=== PATIENT | male | born 1985 | race Caucasian/White ===

== ENCOUNTER 2020-01-16 07:54 | Emergency (ER) | payer MEDICARE, MEDICAID, SELFPAY ==
[2020-01-16] VITALS (7 sets, daily range): BP systolic 118–143; BP diastolic 65–99; PULSE 76–90; RESP 16–18; TEMP 37.2; O2SAT 96–99
--- NOTE | ~2020-01-16 | XR_ITS ---
XR chest 2V DATE: 01/16/2020 08:09 INDICATION: Midsternal chest pain, acute onset TECHNIQUE: PA and lateral views COMPARISON: 04/17/2019 PA and lateral chest FINDINGS: No pulmonary infiltrate or consolidation, pleural effusion or pulmonary vascular congestion or pneumothorax is detected. Heart size appears within normal range. IMPRESSION: No active cardiopulmonary disease Reviewed, dictated and finalized at location A.
--- NOTE | 2020-01-16 07:56 | ECG_ITS ---
Measurements Intervals [place] Rate: 87 P: 39 [place]: 128 QRS: 28 QRSD: 109 T: -9 QT: 319 QTc: 384 Interpretive Statements SINUS RHYTHM BORDERLINE ST-T WAVE ABNORMALITY- INFERIOR LEADS BASELINE ARTIFACT- I, II, AVR, AVL, AVF BORDERLINE ECG Electronically Signed On 01-16-2020 8:51:25 CDT by Adrien Simon D.O.
--- NOTE | 2020-01-16 07:56 | ED.CHESTPAIN ---
HPI - Chest Pain General Chief Complaint: Chest Pain Stated Complaint: CP Source: patient and EMS Mode of arrival: EMS Limitations: no limitations History of Present Illness HPI narrative: Patient is a 34-year-old male who presents to the emergency department for evaluation of epigastric abdominal pain, lower chest pain. Pain started approximately 1 hour prior to arrival while the patient was driving to work, where he is employed at [employer]. Patient just reports the pain is dull, aching in nature without radiation into the neck, jaw, shoulder or back. No lower abdominal pain, no ripping or tearing sensation to the flank. No shortness of breath, no nausea, diaphoresis or vomiting. Patient states he had a burrito for breakfast, but states this does not feel much like acid reflux. No history of previous OH, or any family history of sudden cardiac . He does have a history of hypertension. Related Data Home Medications Medication Instructions Recorded Confirmed lisinopril-hydrochlorothiazide 01/16/20 Allergies Allergy/AdvReac Type Severity Reaction Status Date / Time No Known Allergies Allergy Verified 01/16/20 08:21 Review of Systems Review of Systems: Narrative: CONSTITUTIONAL: Denies fever CARDIOVASCULAR: Reports mild chest pain RESPIRATORY: Denies cough or dyspnea. GASTROINTESTINAL: Reports upper abdominal pain SKIN: Denies rash MUSCULOSKELETAL: Denies back pain NEUROLOGIC: Denies headache PMFSH Past Medical History Medical History (Updated 01/16/20 @ 11:48 by Flaca Alanis MD) Hypertension Social History Social History (Updated 01/16/20 @ 07:58 by Flaca Alanis MD) Smoking status: Never smoker Alcohol intake: never Substance use: never Additional occupation/education comments: [employer] Exam Narrative: Exam Narrative: GENERAL: Awake, alert, conversant HEAD: Normocephalic, atraumatic. EYES: PERRLA and EOMI. ENT: Nares clear, no rhinorrhea or epistaxis. Mucous membranes moist. NECK: Supple. CHEST: No respiratory distress, breathing even and non labored HEART: Regular rate, sinus rhythm ABDOMEN: Obese abdomen, non distended, non tender EXTREMITIES: Normal range of motion. No edema. SKIN: Warm, dry, no rash. NEURO:No focal deficits. Alert and oriented x3 Course Vital Signs Vital signs: Vital Signs Temperature 37.2 C 01/16/20 07:52 Pulse Rate 90 01/16/20 07:52 Respiratory Rate 18 01/16/20 07:52 Blood Pressure 143/94 H 01/16/20 07:52 Pulse Oximetry 99 01/16/20 07:52 Temperature 37.2 C 01/16/20 07:52 Pulse Rate 80 01/16/20 11:00 Respiratory Rate 16 01/16/20 11:00 Blood Pressure 140/99 H 01/16/20 11:00 Pulse Oximetry 96 01/16/20 11:00 MDM - Chest Pain MDM Narrative Medical decision making narrative: Patient presented for evaluation of chest pain. Patient does describe a slightly burning in nature, he did eat a burrito for breakfast and this could be due to acid reflux. No signs of acute ischemic changes on initial EKG. Patient felt improved following GI cocktail, pain medication. Patient's EKG and labs are without significant high risk changes. Cardiac risk factors reviewed. Patient is felt low risk for ACS and reasonable for further risk stratification testing as an outpatient. Pain was not sudden or maximal or onset without tearing or ripping quality. No other signs or symptoms to suggest aortic dissection. A low risk well's criteria is noted, PE is felt to be unlikely. PERC criteria negative. No pneumonia seen on evaluation today. 2 normal troponins in the ER, no recurrent symptoms. Pt heart score of 2. Patient is felt to be a reasonable candidate for continued evaluation as an outpatient. Differential Diagnosis Differential diagnosis: Likely stable angina, unstable angina pectoris, atypical chest pain, costochondritis and chest pain Medical Records Data Attestation: I reviewed the patient's medical records. Lab Data Attestat
[2020-01-16] MEDS: ONDANSETRON INJ 4 MG/2 ML VIAL IV PUSH (08:04)
[2020-01-16] MEDS: MORPHINE SULFATE 4 MG/ML INJ IV PUSH (08:05)
[2020-01-16 08:13] LABS: Basophils Absolute Auto 0.1 K/mm3 (0.0-0.1); Basophils Percent Auto 0.7 % (0.2-1.2); Eosinophils Absolute Auto 0.2 K/mm3 (0-0.3); Hematocrit 40.1 % (42.0-52.0); Hemoglobin 13.7 g/dL (14.0-18.0); Immature Granulocyte Absolute 0.06 K/mm3 (0.00-0.031); Immature Granulocyte Percent A 0.8 % (0-0.5); Lymphocytes Absolute Auto 1.94 K/mm3 (0.9-3.2); Lymphocytes Percent Auto 27.4 % (18.3-44.2); Mean Corpuscular HGB Conc 34.2 g/dl (32-36); Mean Corpuscular Hemoglobin 31.6 pg (26-34); Mean Corpuscular Volume 92.4 fl (80-100); Mean Platelet Volume 10.6 fl (7.4-10.4); Monocytes Absolute Auto 0.7 K/mm3 (0.1-0.6); Monocytes Percent Auto 9.3 % (2.6-8.5); Neutrophils Absolute Auto 4.2 K/mm3 (1.3-6.7); Neutrophils Percent Auto 58.8 % (45.5-73.1); Platelet Count Result 303 k/mm3 (150-375); Red Blood Count 4.34 M/mm3 (4.6-6.20); Red Cell Distribution Width 12.3 % (11.5-14.5); White Blood Count 7.1 K/mm3 (4.5-10.0)
[2020-01-16] MEDS: NITROGLYCERIN SL 0.4 MG TABLET SUBLINGUAL (08:18)
[2020-01-16 08:23] LABS: Alanine Aminotransferase 41 U/L (4-50); Albumin Level 4.4 g/dL (3.5-5.1); Alkaline Phosphatase 67 U/L (38-126); Aspartate Amino Transferase 38 U/L (17-59); Bilirubin,Total 0.5 mg/dL (0.2-1.3); Blood Urea Nitrogen 19 mg/dL (9-20); Calcium 9.2 mg/dL (8.4-10.2); Carbon Dioxide 29 mmol/L (22-30); Chloride 101 mmol/L (98-107); Estimated CRCL calculation 135 ml/min; Estimated Glomerular Filt Rate > 60; Glucose 143 mg/dL (75-110); Lipase 110 U/L (23-300); Potassium 4.1 mmol/L (3.4-5.0); Sodium 138 mmol/L (137-145)
[2020-01-16 08:24] LABS: INR 0.9; Prothrombin Time 11.9 Seconds (11.1-14.7)
[2020-01-16 08:25] LABS: Partial Thromboplastin Time 33.2 SECONDS (22.3-36.8)
[2020-01-16 08:35] LABS: Troponin I < 0.012 ng/mL (0.000-0.034)
[2020-01-16 11:44] LABS: Troponin I < 0.012 ng/mL (0.000-0.034)
--- NOTE | 2020-01-16 11:50 | ECG_ITS ---
Measurements Intervals [place] Rate: 77 P: 31 [place]: 132 QRS: 23 QRSD: 105 T: 0 QT: 348 QTc: 395 Interpretive Statements SINUS RHYTHM EARLY PRECORDIAL R/S TRANSITION BORDERLINE ST-T WAVE ABNORMALITY- INFERIOR LEADS BASELINE WANDER- V4 BORDERLINE ECG Electronically Signed On 01-16-2020 12:35:45 CDT by Adrien Simon D.O.
== END 2020-01-16 12:15 | disposition home or self-care (01) ==
PROVIDERS: Emergency Provider Emergency Medicine
DX: R07.89 Other chest pain (principal); I10 Essential (primary) hypertension; R94.31 Abnormal electrocardiogram [ECG] [EKG]
CPT/HCPCS: 36415; 71046; 80053; 83690; 84484; 85025; 85610; 85730; 93005; 96374; 96375; 99284; A9270; J2270; J2405